=== PATIENT | male | born 1965 | race Two or more races ===

== ENCOUNTER 2025-02-24 12:11 | Inpatient (IN) | payer MEDICAID, OTHER ==
[~2025-02-24] VITALS: Ht 175.3 cm; Wt 125.0 kg
--- NOTE | 2025-02-24 12:29 | ED.PDOC ---
Musculoskeletal HPI Comments 59-year-old male here with right leg swelling times several weeks. noticed some color change it was turning pink and therefore took him to a clinic today. In the clinic they stated ultrasound was done which did demonstrate positive DVT and sent him to the ER. Patient states that when he walks his when the leg bec omes more swollen. He has not had any recent surgery no recent bedrest, no long flights. No history of prior DVT. Denies any shortness of breath. Chief Complaint: Lower Extremity Time Seen by MD: 12:27 Reviewed Notes: Medications, Allergies Allergies: Coded Allergies: NO KNOWN ALLERGIES (Unverified , 02/24/25) Information Source: Patient, Spouse Mode of Arrival: Ambulatory Past Medical History PAST MEDICAL HISTORY: Denies Surgical History: Denies all surgeries Family History Family History: Unknown Social History Smoker: Non-Smoker Alcohol: Denies ETOH Use Drugs: Denies Drug Use Lives In: Home Constitutional: denies: chills, diaphoresis, fatigue, fever, malaise, sweats, weakness, others EENTM: denies: blurred vision, double vision, ear bleeding, ear discharge, ear drainage, ear pain, ear ringing, eye pain, eye redness, hearing loss, mouth pain, mouth swelling, nasal discharge, nose bleeding, nose congestion, nose pain, photophobia, tearing, throat pain, throat swelling, voice changes, others Respiratory: denies: cough, hemoptysis, orthopnea, SOB at rest, shortness of breath, SOB with excertion, stridor, wheezing, others Cardiovascular: denies: chest pain, dizzy spells, diaphoresis, Dyspnea on exertion, edema, irregular heart beat, left arm pain, lightheadedness, palpitations, PND, syncope, others Gastrointestinal: denies: abdomen distended, abdominal pain, blood streaked bowels, constipated, diarrhea, dysphagia, difficulty swallowing, hematemesis, melena, nausea, poor appetite, poor fluid intake, rectal bleeding, rectal pain, vomiting, others Genitourinary: denies: burning, dysuria, flank pain, frequency, hematuria, incontinence, penile discharge, penile sore, pain, testicle pain, testicle swelling, urgency, others Neurological: denies: dizziness, fainting, headache, left sided numbness, left sided weakness, numbness, paresthesia, pre-existing deficit, right sided numbness, right sided weakness, seizure, speech problems, tingling, tremors, weakness, others Musculoskeletal: reports: joint swelling (RLE); denies: back pain, gout, joint pain, muscle pain, muscle stiffness, neck pain, others Integumetry: denies: bruises, change in color, change in hair/nails, dryness, laceration, lesions, lumps, rash, wounds, others Allergic/Immunocompromised: denies: Difficulty Healing, Frequent Infections, Hives, Itching, others Hematologic/Lymphatic: denies: anemia, blood clots, easy bleeding, easy bruising, swollen glands, others Endocrine: denies: excessive hunger, excessive sweating, excessive thirst, excessive urination, flushing, intolerance to cold, intolerance to heat, unexplained weight gain, unexplained weight loss, others Psychiatric: denies: anxiety, bipolar disorder, depression, hopeless, panic disorder, schizophrenia, sleepless, suicidal, others All Other Systems: Reviewed and Negative Physical Exam General Appearance: No Apparent Distress, Normal HEENT: Normal ENT Inspection, Pharynx Normal, TMs Normal Neck: Full Range of Motion, Non-Tender, Normal, Normal Inspection Respiratory: Chest Non-Tender, Lungs Clear, No Accessory Muscle Use, No Respiratory Distress, Normal Breath Sounds Cardiovascular: No Edema, No JVD, No Murmur, No Gallop, Normal Peripheral Pulses, Regular Rate/Rhythm Breast Exam: Deferred Gastrointestinal: No Organomegaly, Non Tender, No Pulsatile Mass, Normal Bowel Sounds, Soft Genitalia: Deferred Pelvic: Deferred Rectal: Deferred Extremities: Swelling, Tender, Other (3+ pitting edema and evidence of erythema to right lower extremity, increased swelling compared to the left.) Musculoskeletal : Apperance: Normal Neurologic: Alert, No Motor Deficits, Normal Affect, Normal Mood, No Sensory Deficits Cerebellar Function: Normal Reflexes: Normal Skin: Dry, Normal Color, Warm Lymphatic: No Adenopathy Was a procedure done? Was a procedure done?: No Differential Diagnosis EXT Differential Diagnosis: Other Other Differential Diagnosis DVT, cellulitis, fluid overload X-Ray, Labs, Meds, VS Vital Signs Date Time Temp Pulse Resp B/P (MAP) Pulse Ox O2 Delivery O2 Flow Rate FiO2 02/24/25 12:16 97.9 83 16 137/74 97 97.9 Lab Test 02/24/25 12:39 Range/Units White Blood Count 6.3 4.4-10.8 10^3/uL Red Blood Count 4.87 4.5-5.90 10^6/uL Hemoglobin 14.0 13.5-17.5 g/dL Hematocrit 41.4 41.0-53.0 % Mean Corpuscular Volume 84.8 80.0-100.0 fL Mean Corpuscular Hemoglobin 28.8 28.0-32.0 pg Mean Corpuscular Hemoglobin Concent 33.9 32.0-36.0 g/dL Red Cell Distribution Width 14.5 H 11.8-14.3 % Platelet Count 235 140-450 10^3/uL Mean Platelet Volume 7.8 6.9-10.8 fL Neutrophils (%) (Auto) 67.6 37.0-80.0 % Lymphocytes (%) (Auto) 22.4 10.0-50.0 % Monocytes (%) (Auto) 7.9 0.0-12.0 % Eosinophils (%) (Auto) 1.8 0.0-7.0 % Basophils (%) (Auto) 0.3 0.0-2.0 % Neutrophils # (Auto) 4.3 1.6-8.6 10 ^3/uL Lymphocytes # (Auto) 1.4 0.4-5.4 10 ^3/uL Monocytes # (Auto) 0.5 0-1.3 10 ^3/uL Eosinophils # (Auto) 0.1 0-0.8 10 ^3/uL Basophils # (Auto) 0 0-0.2 10 ^3/uL Nucleated Red Blood Cells 0.1 % Prothrombin Time 10.9 9.3-11.8 sec Prothrombin Time INR 1.03 0.9-1.15 Activated Partial Thromboplast Time 35.0 H 24.5-34.5 SEC Sodium Level 141 136-145 mmol/L Potassium Level 4.1 3.5-5.1 mmol/L Chloride Level 107 98-107 mmol/L Carbon Dioxide Level 24 20-31 mmol/L Anion Gap 10 5-15 Blood Urea Nitrogen 15 9-23 mg/dL Creatinine 1.26 0.700-1.30 mg/dL Glomerular Filtration Rate Calc 65 >90 mL/min BUN/Creatinine Ratio 11.9 10.0-20.0 Serum Glucose 123 H 74-106 mg/dL Calcium Level 9.3 8.7-10.4 mg/dL [facility] [id number] [place] [address] Ph: [phone] DIAGNOSTIC IMAGING Diagnostic Imaging Report : [id number] Signed PATIENT: GISSELL ROSADO ACCT: [id number] UNIT: [id number] : 1965 LOC: ER ROOM / BED: / AGE / SEX: 59 / M ADM STATUS: REG ER SERVICE 1229 ORDERING PHYSICIAN: ARTURO RUIZ MD PROCEDURE(s): RLDVT - RT Lower DVT REASON: ro dvt ORDER NUMBER(s): [id number], ACCESSION NUMBER(s): [id number] Right lower extremity venous duplex Clinical History: ro dvt Comparison: None Technique: Duplex Doppler evaluation of the deep venous system of the right lower extremity from the common femoral vein to the popliteal vein including color Doppler and spectral/pulsed waveform analysis was performed. Findings: Positive DVT study for the right common femoral, proximal superficial femoral and mid to distal popliteal veins on the right side. Calf veins unable to be visualized secondary to edema. 5.2 cm right groin lymph node. IMPRESSION: 1. Positive DVT study Referring physician notified of results following exam ATED BY: BENNIE MACIEL MD DICTATED DATE/TIME: 02/24/25 1331 SIGNED BY: BENNIE MACIEL MD SIGNED DATE/TIME: 02/24/25 1331 CC: 59-year-old male presents here from clinic for possible DVT. Ultrasound has been done which is positive for DVT to the entire right leg. I have started the patient on heparin drip and bolus in case a procedure needs to be performed thrombectomy and they can easily reverse it. Blood work has been done which is otherwise unremarkable. At this time hospitalist team has been contacted for admission. Time of 1ST Reevaluation: 13:18 Reevaluation 1ST: Unchanged Time of 2ND Reevaluation: 14:47 Reevaluation 2ND: Unchanged Patient Education/Counseling: Diagnosis, Treatment, Prognosis Family Education/Counseling: Diagnosis, Treatment, Prognosis Departure 1 Departure Time of Disposition: 14:47 Impression: Primary Impression: DVT (deep venous thrombosis) Qualified Codes: I82.401 - Acute embolism and thrombosis of unspecified deep veins of right lower extremity Disposition: ADMITTED INPATIENT Condition: Guarded Critical Care Note Critical Care Time?: Yes (35 min-critical care time only) Critical care comment: Immediate concern for DVT. Concern for propagation of his thrombosis and subsequent PE. Patient is started on heparin drip. Time spent evaluating the patient, speaking to ultrasound staff regarding critical results, starting heparin drip, speaking to admitting physician. Stability Stability form required: No Heart Score Heart Score: Heart Score Response (Comments) Value History N/A 0 EKG N/A 0 Age N/A 0 Risk Factors N/A 0 Troponin N/A 0 Total 0 I personally scribed for ARTURO RUIZ MD ([email or web address]) on 02/24/25 at 12:29. Electronically submitted by Jean-Pierre Ferrara ([email or web address]). I personally scribed for ARTURO RUIZ MD ([email or web address]) on 02/24/25 at 12:43. Electronically submitted by Jean-Pierre Ferrara ([email or web address]). I personally scribed for ARTURO RUIZ MD ([email or web address]) on 02/24/25 at 13:18. Electronically submitted by Jean-Pierre Ferrara ([email or web address]). I personally scribed for ARTURO RUIZ MD ([email or web address]) on 02/24/25 at 14:20. Electronically submitted by Jean[facility]Pierre Ferrara ([email or web address] I personally scribed for ARTURO RUIZ MD ([email or web address]) on 02/24/25 at 14:48. Electronically submitted by Jean-Pierre Ferrara ([facility] ARTURO RUIZ MD Feb 24, 2025 12:29
[2025-02-24 13:07] LABS: Hematocrit 41.4 % (41.0-53.0); Hemoglobin 14.0 g/dL (13.5-17.5); Mean Corpuscular Hemoglobin 28.8 pg (28.0-32.0); Mean Corpuscular Volume 84.8 fL (80.0-100.0); Nucleated Red Blood Cells % 0.1 %
[2025-02-24 13:13] LABS: Chloride 107 mmol/L (98-107); Potassium 4.1 mmol/L (3.5-5.1); Sodium 141 mmol/L (136-145)
[2025-02-24 13:14] LABS: Anion Gap 10 (5-15); Calcium 9.3 mg/dL (8.7-10.4); Carbon Dioxide 24 mmol/L (20-31)
[2025-02-24 13:19] LABS: BUN/Creatinine Ratio 11.9 (10.0-20.0); Blood Urea Nitrogen 15 mg/dL (9-23)
[2025-02-24 13:20] LABS: Glucose 123 mg/dL (74-106)
[2025-02-24 13:28] LABS: INR 1.04 (0.9-1.15); Prothrombin Time 11.0 sec (9.3-11.8)
--- NOTE | 2025-02-24 13:34 | DVH ---
Right lower extremity venous duplex Clinical History: ro dvt Comparison: None Technique: Duplex Doppler evaluation of the deep venous system of the right lower extremity from the common femo ral vein to the popliteal vein including color Doppler and spectral/pulsed waveform analysis was perf ormed. Findings: Positive DVT study for the right common femoral, proximal superficial femoral and mid to distal popli teal veins on the right side. Calf veins unable to be visualized secondary to edema. 5.2 cm right matheus in lymph node. IMPRESSION: 1. Positive DVT study Referring physician notified of results following exam
[2025-02-24 14:44] LABS: INR 1.03 (0.9-1.15); Partial Thromboplastin Time 35.0 SEC (24.5-34.5); Prothrombin Time 10.9 sec (9.3-11.8)
--- NOTE | 2025-02-24 14:50 | DVHHP2 ---
Admitting Diagnosis: right leg pain History of Present Illness 59-year-old male here with right leg swelling times several weeks. noticed some color change it was turning pink and therefore took him to a clinic today. In the clinic they stated ultrasound was done which did demonstrate positive DVT and sent him to the ER. Patient states that when he walks his when the leg becomes more swollen. He has not had any recent surgery no recent bedrest, no long flights. No history of prior DVT. Denies any shortness of breath. PAST MEDICAL HISTORY: Denies Surgical History: Denies all surgeries Family History Family History: Unknown Social History Smoker: Non-Smoker Alcohol: Denies ETOH Use Drugs: Denies Drug Use Lives In: Home Allergies: Coded Allergies: NO KNOWN ALLERGIES (Unverified , 02/24/25) Current Medications Current Medications Medications (Trade) Dose Ordered Sig/[place] Route PRN Reason Start Time Stop Time Status Last Admin Heparin Sodium/ Dextrose 250 ml @ 20 mls/hr [id number] IV 02/24/25 13:30 Sodium Chloride (Saline Lock Ns) 10 ml Q8HR IV 02/24/25 22:00 UNV Vital Signs Vital Signs Date Time Temp Pulse Resp B/P (MAP) Pulse Ox O2 Delivery O2 Flow Rate FiO2 02/24/25 12:16 97.9 83 16 137/74 97 97.9 Physical Exam Generally-59 years old male, morbidly obese, sitting on chair. Mild distress HEENT-atraumatic normocephalic Heart-regular rate and rhythm Lungs clear to auscultate Abdomen soft nontender nondistended Musculoskeletal-right lower extremity edema, erythematous, tender Neuro-AO x3, no focal deficits SEPSIS Sepsis Screen Date sepsis recognized/suspect: Feb 24, 2025 Time Sepsis recognized/suspect: 9 Recent Procedure: No On Antibiotic Therapy: No Respiratory Rate >20: No Heart Rate >90: No Temp<36 C (96.8 F) or >38.3 C: No SBP <90 or MAP <65 mmHG: No New Acute Mental Status Change: No Is the patient on CPAP, BIPAP,: No Physician Orders Rt Lower Dvt (02/24/25 12:29) Platelet Monitoring (02/24/25 13:43) Vte Protocol Initiated (02/24/25 13:43) Heparin Per Standardized Proce (02/24/25 13:43) Discontinue All Im Injections (02/24/25 13:43) PTPTT (02/24/25 13:43) Complete Blood Count (02/24/25 13:43) Heparin Drip/D5w 100units/Ml (02/24/25 13:30) Admit (02/24/25:) Code Status (02/24/25:) Vital Signs .PER UNIT PROTOCOL (02/24/25:) Review Orders With Adm.Md (02/24/25:) Encourage Activity As Tolerate (02/24/25:) Regular Diet (02/24/25 Dinner) Sodium Chloride Lock (Saline Lock Ns) (02/24/25 22:00) Acetaminophen Tablet (Tylenol Tablet) (02/24/25:30) Notify Md Of Changes From Base (02/24/25:) Advance Directive (02/24/25:) Patient Condition (02/24/25:) Allergies (02/24/25:) Hydrocodone-Acet 5/325mg Tab ([place] 5/32 (02/24/25 15:30) Hydromorphone Injection (Dilaudid Inject (02/24/25 15:30) Ondansetron Hcl (Zofran) (02/24/25 15:30) Complete Blood Count (02/25/25 05:00) Complete Blood Count (02/26/25 05:00) Complete Blood Count (02/27/25 05:00) Complete Blood Count (02/28/25 05:00) Complete Blood Count (03/01/25 05:00) Comprehensive Metabolic Panel (02/25/25 05:00) Comprehensive Metabolic Panel (02/26/25 05:00) Comprehensive Metabolic Panel (02/27/25 05:00) Comprehensive Metabolic Panel (02/28/25 05:00) Comprehensive Metabolic Panel (03/01/25 05:00) Vital Signs Date Time Temp Pulse Resp B/P (MAP) Pulse Ox O2 Delivery O2 Flow Rate FiO2 02/24/25 12:16 97.9 83 16 137/74 97 97.9 Laboratory Tests Test 02/24/25 12:39 White Blood Count 6.3 10^3/uL (4.4-10.8) Results Labs Test 02/24/25 12:39 Range/Units White Blood Count 6.3 4.4-10.8 10^3/uL Red Blood Count 4.87 4.5-5.90 10^6/uL Hemoglobin 14.0 13.5-17.5 g/dL Hematocrit 41.4 41.0-53.0 % Mean Corpuscular Volume 84.8 80.0-100.0 fL Mean Corpuscular Hemoglobin 28.8 28.0-32.0 pg Mean Corpuscular Hemoglobin Concent 33.9 32.0-36.0 g/dL Red Cell Distribution Width 14.5 H 11.8-14.3 % Platelet Count 235 140-450 10^3/uL Mean Platelet Volume 7.8 6.9-10.8 fL Neutrophils (%) (Auto) 67.6 37.0-80.0 % Lymphocytes (%) (Auto) 22.4 10.0-50.0 % Monocytes (%) (Auto) 7.9 0.0-12.0 % Eosinophils (%) (Auto) 1.8 0.0-7.0 % Basophils (%) (Auto) 0.3 0.0-2.0 % Neutrophils # (Auto) 4.3 1.6-8.6 10 ^3/uL Lymphocytes # (Auto) 1.4 0.4-5.4 10 ^3/uL Monocytes # (Auto) 0.5 0-1.3 10 ^3/uL Eosinophils # (Auto) 0.1 0-0.8 10 ^3/uL Basophils # (Auto) 0 0-0.2 10 ^3/uL Nucleated Red Blood Cells 0.1 % Prothrombin Time 10.9 9.3-11.8 sec Prothrombin Time INR 1.03 0.9-1.15 Activated Partial Thromboplast Time 35.0 H 24.5-34.5 SEC Sodium Level 141 136-145 mmol/L Potassium Level 4.1 3.5-5.1 mmol/L Chloride Level 107 98-107 mmol/L Carbon Dioxide Level 24 20-31 mmol/L Anion Gap 10 5-15 Blood Urea Nitrogen 15 9-23 mg/dL Creatinine 1.26 0.700-1.30 mg/dL Glomerular Filtration Rate Calc 65 >90 mL/min BUN/Creatinine Ratio 11.9 10.0-20.0 Serum Glucose 123 H 74-106 mg/dL Calcium Level 9.3 8.7-10.4 mg/dL Primary Diagnosis Right lower extremity DVT Plan Ultrasound shows positive lower extremity DVT Patient started on heparin drip Monitor erythema and pain Monitor for oxygen saturation Discharged with oral anticoagulation Full code Regular diet Heparin for DVT prophylaxis No GI prophylaxis needed Plan discussed with: Patient Problems List: (1) DVT (deep venous thrombosis) Status: Acute Date of Service: Feb 24, 2025 Billing Provider: CHIARA WHITE MD Common Visit Codes: [id number] INP/OBS CARE (MOD) CHIARA WHITE MD Feb 24, 2025 14:50
[2025-02-24] MEDS ORDERED: ACETAMINOPHEN 325 MG TAB PO PRN (15:30)
[2025-02-24] MEDS ORDERED: HYDROcodone-ACET 5/325MG TAB PO PRN (15:30)
[2025-02-24] MEDS ORDERED: ONDANSETRON HCL 4 MG/2 ML VIAL IV PRN (15:30)
[2025-02-24] MEDS ORDERED: HYDROmorphone HCL 2 MG/ML VL/or syr IV PRN (15:30)
[2025-02-24 18:10] VITALS: PULSE 65; RESP 18; O2SAT 97
[2025-02-24] MEDS: HEPARIN SODIUM (PORCINE) 5000 UNITS/ML 1ML VIAL IV ONE (18:24)
[2025-02-24] MEDS: HEPARIN DRIP/D5W 100UNITS/ML 250 ML IV SCH (18:26)
[2025-02-24 19:55] VITALS: PULSE 88; RESP 20; O2SAT 97
[2025-02-24] MEDS: SODIUM CHLOR 0.9% PF (SALINE LOCK) 10ML VIAL/SYR IV SCH (20:50)
[2025-02-25 01:03] LABS: INR 1.05 (0.9-1.15); Prothrombin Time 11.1 sec (9.3-11.8)
[2025-02-25 01:06] LABS: Partial Thromboplastin Time 87.9 SEC (24.5-34.5)
[2025-02-25] MEDS: HEPARIN DRIP/D5W 100UNITS/ML 250 ML IV SCH ×3 (01:14→17:15)
[2025-02-25 05:46] LABS: Hematocrit 38.6 % (41.0-53.0); Hemoglobin 13.1 g/dL (13.5-17.5); Mean Corpuscular Hemoglobin 28.7 pg (28.0-32.0); Mean Corpuscular Volume 84.5 fL (80.0-100.0); Nucleated Red Blood Cells % 0.1 %
[2025-02-25 06:05] LABS: Alanine Aminotransferase 20 U/L (7-40); Alkaline Phosphatase 63 U/L (46-116); Anion Gap 10 (5-15); BUN/Creatinine Ratio 13.8 (10.0-20.0); Blood Urea Nitrogen 16 mg/dL (9-23); Calcium 9.3 mg/dL (8.7-10.4); Carbon Dioxide 25 mmol/L (20-31); Chloride 106 mmol/L (98-107); Glucose 104 mg/dL (74-106); Potassium 4.5 mmol/L (3.5-5.1); Sodium 141 mmol/L (136-145); Total Protein 6.7 g/dL (5.7-8.2)
[2025-02-25 06:06] LABS: Albumin 4.2 g/dL (3.2-4.8); Bilirubin, Total 0.5 mg/dL (0.2-1.0)
[2025-02-25 08:06] VITALS: PULSE 61; RESP 15; O2SAT 97
[2025-02-25 08:51] LABS: INR 1.07 (0.9-1.15); Prothrombin Time 11.3 sec (9.3-11.8)
[2025-02-25 09:14] LABS: Partial Thromboplastin Time 134.1 SEC (24.5-34.5)
--- NOTE | 2025-02-25 09:37 | CONS ---
Pharmacy Clinical Information: HEPARIN PER DVT PROTOCOL: APTT result of 134.1 received from 0734 draw. Please hold heparin for 1 hour, then adjust rate to 1600 units per hour (16mL/hr). Nurse Phi bennett drip @ 0915, will resume at 1015 with new rate. APTT/PT ordered for 1600 per PRx protocol. AGUILA BURCH PHARMACIST Feb 25, 2025 09:37
[2025-02-25] MEDS ORDERED: HEPARIN DRIP/D5W 100UNITS/ML 250 ML IV SCH (10:15)
[2025-02-25] MEDS: IOHEXOL 350 MG/ML 100ML IJ ONE (14:11)
[2025-02-25] MEDS: SODIUM CHLORIDE 0.9% 1,000 ML IV SCH (14:47)
--- NOTE | 2025-02-25 15:17 | DVH ---
CTA Chest with intravenous contrast INDICATION: dvt r/o PE COMPARISON: None TECHNIQUE: Multidetector spiral CTA of the chest was performed of the chest with intravenous contrast . PULMONARY ANGIOGRAPHY PROTOCOL was utilized using a bolus-tracking technique centered on the main p ulmonary artery. Axial, coronal and sagittal multiplanar and MIP reformats were performed. Radiation Dose : 1. Chest: CTDI volume is 44.4 mGy. Dose-length product is 2.54 mGy*cm The dose indicators for CT are the volume Computed Tomography (CT) Dose Index (CTDIvol) and the Dose Length Product (DLP), and are measured in units of mGy and mGy-cm, respectively. These indicators are not patient dose, but values generated from the CT scanner acquisition factors. The report includes radiation exposure data for exposures received during this examination. Findings: Pulmonary artery: No pulmonary embolism Lower neck: Normal thyroid. Lungs: Bibasilar atelectasis/ scarring. No focal consolidation, pleural effusion or pneumothorax. Heart/Vascular Structures: Normal heart size. No pericardial effusion. Lymph Nodes: No adenopathy Pleura: No pleural effusion or significant pneumothorax. Musculoskeletal: No acute osseous abnormality. Soft tissues: Normal. Upper abdomen: Limited portions of the upper abdomen are unremarkable. IMPRESSION: 1. No pulmonary embolism. 2. No acute thoracic finding.
[2025-02-25 16:58] LABS: INR 1.04 (0.9-1.15); Prothrombin Time 11.0 sec (9.3-11.8)
[2025-02-25 17:14] LABS: Partial Thromboplastin Time 77.7 SEC (24.5-34.5)
--- NOTE | 2025-02-25 17:27 | CONS ---
Pharmacy Clinical Information: HEPARIN UPDATE PER PROTOCOL: APTT result of 77.7 received from 1620 draw. Please reduce heparin to 1300 units per hour (13mL/hr) starting at 1715. Nurse Bety adjusted rate at 1715, confirmed and read back. APTT/PT ordered for 2315 per PRx protocol. AGUILA BURCH PHARMACIST Feb 25, 2025 17:27
--- NOTE | 2025-02-25 17:45 | DVHPN2 ---
Changes from previous H/P or p: No Changes Objective Vitals Vital Signs Date Time Temp Pulse Resp B/P (MAP) Pulse Ox O2 Delivery O2 Flow Rate FiO2 02/25/25 16:00 63 16 117/78 (91) 96 02/25/25 08:06 Room Air* 0 21 02/25/25 05:57 98.1 98.1 Medications Current Medications Medications Dose Ordered Sig/[place] Route Start Time Stop Time Status Last Admin Dose Admin Sodium Chloride 10 ml Q8HR IV 02/24/25 22:00 02/25/25 14:07 10 ML Acetaminophen 650 mg Q6HP PRN PO 02/24/25 15:30 Acetaminophen/ Hydrocodone Bitart 1 tab Q4HP PRN PO 02/24/25 15:30 Hydromorphone HCl 0.5 mg Q4HP PRN IV 02/24/25 15:30 Ondansetron HCl 4 mg Q4HP PRN IV 02/24/25 15:30 Sodium Chloride 1,000 ml @ 100 mls/hr Q10H IV 02/25/25 13:00 02/25/25 14:47 100 MLS/HR Heparin Sodium/ Dextrose 250 ml @ 13 mls/hr [id number] IV 02/25/25 17:30 Laboratory Results Laboratory Tests 02/25/25 05:33 Chemistry Test 02/25/25 05:33 Albumin 4.2 g/dL (3.2-4.8) Calcium Level 9.3 mg/dL (8.7-10.4) Total Protein 6.7 g/dL (5.7-8.2) Coagulation Test 02/25/25 00:30 02/25/25 07:34 02/25/25 16:20 Prothrombin Time 11.1 sec (9.3-11.8) 11.3 sec (9.3-11.8) 11.0 sec (9.3-11.8) Prothrombin Time INR 1.05 (0.9-1.15) 1.07 (0.9-1.15) 1.04 (0.9-1.15) Activated Partial Thromboplast Time 87.9 SEC (24.5-34.5) *H 134.1 SEC (24.5-34.5) *H 77.7 SEC (24.5-34.5) *H LFT Test 02/25/25 05:33 Alanine Aminotransferase (ALT) 20 U/L (7-40) Alkaline Phosphatase 63 U/L (46-116) Aspartate Amino Transferase (AST) 23 U/L (13-40) Total Bilirubin 0.5 mg/dL (0.2-1.0) Assessment/Plan Assessment/Plan Right lower extremity DVT unclear etiology We will have Interventional Radiology for consider thrombectomy. Continue IV heparin for now. I will check PSA levels and hypercoagulable tests. Otherwise follow clinical management per clinical course Plan discussed with: Other My Orders Orders - BARBY SALAMANCA MD Procedure Category Date Status Time * Radiologist Consult CONS 02/25/25 Transmitted 12:[address] 02/25/25 Resulted Contrast 12:59 Sodium Chloride 0.9% PHA 02/25/25 In Process 13:00 Date of Service: Feb 25, 2025 Billing Provider: BARBY SALAMANCA MD Common Visit Codes: [id number] INP/OBS CARE(MOD) BARBY SALAMANCA MD Feb 25, 2025 17:45
[2025-02-25 19:25] VITALS: PULSE 60; RESP 20; O2SAT 95
[2025-02-25 23:31] VITALS: BP 141/88; PULSE 55; RESP 18; TEMP 97.6; O2SAT 99
[2025-02-25 23:48] LABS: INR 1.05 (0.9-1.15); Partial Thromboplastin Time 62.4 SEC (24.5-34.5); Prothrombin Time 11.1 sec (9.3-11.8)
[2025-02-26] VITALS (9 sets, daily range): BP systolic 117–147; BP diastolic 68–96; PULSE 53–75; RESP 12–20; TEMP 97.6–98.6; O2SAT 94–99
[2025-02-26 07:36] LABS: Hematocrit 41.7 % (41.0-53.0); Hemoglobin 14.5 g/dL (13.5-17.5); Mean Corpuscular Hemoglobin 29.3 pg (28.0-32.0); Mean Corpuscular Volume 84.1 fL (80.0-100.0); Nucleated Red Blood Cells % 0.1 %
[2025-02-26 07:55] LABS: Alanine Aminotransferase 21 U/L (7-40); Albumin 4.4 g/dL (3.2-4.8); Alkaline Phosphatase 66 U/L (46-116); Anion Gap 11 (5-15); BUN/Creatinine Ratio 11.7 (10.0-20.0); Blood Urea Nitrogen 14 mg/dL (9-23); Calcium 9.3 mg/dL (8.7-10.4); Carbon Dioxide 25 mmol/L (20-31); Chloride 104 mmol/L (98-107); Glucose 163 mg/dL (74-106); Potassium 3.9 mmol/L (3.5-5.1); Sodium 140 mmol/L (136-145); Total Protein 7.1 g/dL (5.7-8.2)
[2025-02-26 07:56] LABS: Bilirubin, Total 0.6 mg/dL (0.2-1.0)
[2025-02-26 08:06] LABS: INR 1.22 (0.9-1.15); Prothrombin Time 12.7 sec (9.3-11.8)
--- NOTE | 2025-02-26 09:58 | CONS ---
Pharmacy Clinical Information: HEPARIN DRIP, DVT PROTOCOL @0858 APTT 61.4 - NO BOLUS / NO CHANGE NEXT APTT DRAW SCHEDULED @1500 PER RX PROTOCOL CONFIRMED AND READ BACK WITH RN LILY TY PHARMACIST Feb 26, 2025 09:58
[2025-02-26 11:18] LABS: Hepatitis B Surface Antigen Negative (Negative); Hepatitis C Antibody Negative (Negative)
[2025-02-26] MEDS: HEPARIN SODIUM (PORCINE) 5000 UNITS/ML 1ML VIAL ONE (15:35)
[2025-02-26] MEDS: fentaNYL CITRATE 100 MCG/2 ML VL ONE (15:36)
[2025-02-26] MEDS: IODIXANOL 320MG/ML 100ML BTL IV ONE (15:36)
[2025-02-26] MEDS: MIDAZOLAM HCL 2MG/2ML 2ml VIAL (1mg/ml) ONE (15:36)
[2025-02-26] MEDS: LIDOCAINE 2%HCL (LOCAL ANESTH.) INJ 20ML MDV ONE (15:36)
[2025-02-26 18:27] LABS: INR 1.07 (0.9-1.15); Partial Thromboplastin Time 36.6 SEC (24.5-34.5); Prothrombin Time 11.3 sec (9.3-11.8)
[2025-02-26] MEDS: HEPARIN DRIP/D5W 100UNITS/ML 250 ML IV SCH (18:48)
--- NOTE | 2025-02-26 22:38 | DVHPN2 ---
Subjective In bed comfortable. No complaints or shortness for breath chest pain or legs discomfort. Pending evaluation for thrombectomy of the blood clot in the leg. Changes from previous H/P or p: No Changes Objective Vitals Vital Signs Date Time Temp Pulse Resp B/P (MAP) Pulse Ox O2 Delivery O2 Flow Rate FiO2 02/26/25 21:00 97.8 57 16 131/77 (95) 97 97.8 02/26/25 08:20 Room Air* 0 21 Intake/Output Intake and Output 02/26/25 07:00 Intake Total 1053 ml Output Total 550 ml Balance 503 ml Intake Oral 0 ml IV Total 1053 ml Output Urine Total 550 ml Exam Alert awake oriented x3. HEENT neck supple no JVD. Heart regular rate and rhythm S1-S2. Lungs fair air movement without wheezing. Abdomen obese soft positive bowel sounds. Extremities positive distal pedal pulses. Medications Current Medications Medications Dose Ordered Sig/[place] Route Start Time Stop Time Status Last Admin Dose Admin Sodium Chloride 10 ml Q8HR IV 02/24/25 22:00 02/26/25 22:22 10 ML Acetaminophen 650 mg Q6HP PRN PO 02/24/25 15:30 Acetaminophen/ Hydrocodone Bitart 1 tab Q4HP PRN PO 02/24/25 15:30 Hydromorphone HCl 0.5 mg Q4HP PRN IV 02/24/25 15:30 Ondansetron HCl 4 mg Q4HP PRN IV 02/24/25 15:30 Sodium Chloride 1,000 ml @ 100 mls/hr Q10H IV 02/25/25 13:00 02/26/25 18:48 100 MLS/HR Heparin Sodium/ Dextrose 250 ml @ 13 mls/hr [id number] IV 02/26/25 17:30 02/26/25 18:48 13 MLS/HR Laboratory Results Laboratory Tests 02/26/25 07:08 Chemistry Test 02/26/25 07:08 Albumin 4.4 g/dL (3.2-4.8) Calcium Level 9.3 mg/dL (8.7-10.4) Total Protein 7.1 g/dL (5.7-8.2) Coagulation Test 02/25/25 23:21 02/26/25 07:08 02/26/25 08:58 02/26/25 17:57 Prothrombin Time 11.1 sec (9.3-11.8) 12.7 sec (9.3-11.8) H 11.3 sec (9.3-11.8) Prothrombin Time INR 1.05 (0.9-1.15) 1.22 (0.9-1.15) H 1.07 (0.9-1.15) Activated Partial Thromboplast Time 62.4 SEC (24.5-34.5) H 61.4 SEC (24.5-34.5) H 36.6 SEC (24.5-34.5) H Anti-Thrombin III Antigen Pending Factor V Leiden Mutation Pending LFT Test 02/26/25 07:08 Alanine Aminotransferase (ALT) 21 U/L (7-40) Alkaline Phosphatase 66 U/L (46-116) Aspartate Amino Transferase (AST) 21 U/L (13-40) Total Bilirubin 0.6 mg/dL (0.2-1.0) Assessment/Plan Assessment/Plan Right lower extremity DVT unclear etiology We will have Interventional Radiology for consider thrombectomy. Continue IV heparin for now. Pending thrombectomy evaluation today. Further clinical management per clinical course. Plan discussed with: Patient, Other Date of Service: Feb 26, 2025 Billing Provider: BARBY SALAMANCA MD Common Visit Codes: [id number] INP/OBS CARE(MOD) BARBY SALAMANCA MD Feb 26, 2025 22:37
[2025-02-27] MEDS: HEPARIN DRIP/D5W 100UNITS/ML 250 ML IV SCH (00:53)
[2025-02-27 01:00] VITALS: BP 145/89; PULSE 60; RESP 18; TEMP 98; O2SAT 98
[2025-02-27 05:00] VITALS: BP 137/92; PULSE 64; RESP 16; TEMP 97.7; O2SAT 98
[2025-02-27 08:07] LABS: Prostate Specific Antigen 2.4 ng/mL (0.0-4.0)
[2025-02-27 08:12] VITALS: RESP 18
[2025-02-27 08:21] LABS: Hematocrit 39.8 % (41.0-53.0); Hemoglobin 13.8 g/dL (13.5-17.5); Mean Corpuscular Hemoglobin 29.0 pg (28.0-32.0); Mean Corpuscular Volume 83.7 fL (80.0-100.0); Nucleated Red Blood Cells % 0.0 %
[2025-02-27 08:48] LABS: Alanine Aminotransferase 21 U/L (7-40); Albumin 4.3 g/dL (3.2-4.8); Alkaline Phosphatase 64 U/L (46-116); Anion Gap 10 (5-15); BUN/Creatinine Ratio 12.1 (10.0-20.0); Blood Urea Nitrogen 13 mg/dL (9-23); Calcium 9.3 mg/dL (8.7-10.4); Carbon Dioxide 24 mmol/L (20-31); Chloride 107 mmol/L (98-107); Glucose 93 mg/dL (74-106); Potassium 4.0 mmol/L (3.5-5.1); Sodium 141 mmol/L (136-145); Total Protein 7.0 g/dL (5.7-8.2)
[2025-02-27 08:49] LABS: Bilirubin, Total 0.6 mg/dL (0.2-1.0)
[2025-02-27 08:56] LABS: INR 1.08 (0.9-1.15); Partial Thromboplastin Time 64.0 SEC (24.5-34.5); Prothrombin Time 11.4 sec (9.3-11.8)
[2025-02-27 09:00] VITALS: BP 139/89; PULSE 67; RESP 20; TEMP 98; O2SAT 97
--- NOTE | 2025-02-27 09:42 | CONS ---
Pharmacy Clinical Information: HEPARIN DRIP, DVT PROTOCOL @0728 APTT 64.0 - NO BOLUS / NO CHANGE NEXT APTT DRAW SCHEDULED @1400 PER RX PROTOCOL CONFIRMED AND READ BACK WITH HERSON ABURTO [facility] RESIDENT Feb 27, 2025 09:42
[2025-02-27] MEDS ORDERED: APIX5TAB4 PO (12:08)
[2025-02-27 13:00] VITALS: BP 121/85; PULSE 65; RESP 18; TEMP 98.9; O2SAT 97
[2025-02-27] MEDS: APIXABAN 5 MG TAB PO SCH (13:23)
--- NOTE | 2025-02-27 15:15 | DVHDS2 ---
Discharge Summary Date of Admission Feb 24, 2025 at 15:25 Date of Discharge: Feb 27, 2025 Labs/Diagnostic Data: Laboratory Results Test 02/27/25 07:28 02/26/25 07:08 White Blood Count 4.7 10^3/uL (4.4-10.8) Red Blood Count 4.76 10^6/uL (4.5-5.90) Hemoglobin 13.8 g/dL (13.5-17.5) Hematocrit 39.8 % (41.0-53.0) Mean Corpuscular Volume 83.7 fL (80.0-100.0) Mean Corpuscular Hemoglobin 29.0 pg (28.0-32.0) Mean Corpuscular Hemoglobin Concent 34.7 g/dL (32.0-36.0) Red Cell Distribution Width 14.4 % (11.8-14.3) Platelet Count 202 10^3/uL (140-450) Mean Platelet Volume 7.9 fL (6.9-10.8) Neutrophils (%) (Auto) 62.2 % (37.0-80.0) Lymphocytes (%) (Auto) 26.4 % (10.0-50.0) Monocytes (%) (Auto) 8.9 % (0.0-12.0) Eosinophils (%) (Auto) 2.0 % (0.0-7.0) Basophils (%) (Auto) 0.5 % (0.0-2.0) Neutrophils # (Auto) 2.9 10 ^3/uL (1.6-8.6) Lymphocytes # (Auto) 1.2 10 ^3/uL (0.4-5.4) Monocytes # (Auto) 0.4 10 ^3/uL (0-1.3) Eosinophils # (Auto) 0.1 10 ^3/uL (0-0.8) Basophils # (Auto) 0 10 ^3/uL (0-0.2) Nucleated Red Blood Cells 0.0 % Prothrombin Time 11.4 sec (9.3-11.8) Prothrombin Time INR 1.08 (0.9-1.15) Activated Partial Thromboplast Time 64.0 SEC (24.5-34.5) Sodium Level 141 mmol/L (136-145) Potassium Level 4.0 mmol/L (3.5-5.1) Chloride Level 107 mmol/L (98-107) Carbon Dioxide Level 24 mmol/L (20-31) Anion Gap 10 (5-15) Blood Urea Nitrogen 13 mg/dL (9-23) Creatinine 1.07 mg/dL (0.700-1.30) Glomerular Filtration Rate Calc 79 mL/min (>90) BUN/Creatinine Ratio 12.1 (10.0-20.0) Serum Glucose 93 mg/dL (74-106) Calcium Level 9.3 mg/dL (8.7-10.4) Total Bilirubin 0.6 mg/dL (0.2-1.0) Aspartate Amino Transferase (AST) 25 U/L (13-40) Alanine Aminotransferase (ALT) 21 U/L (7-40) Alkaline Phosphatase 64 U/L (46-116) Total Protein 7.0 g/dL (5.7-8.2) Albumin 4.3 g/dL (3.2-4.8) Free Prostate Specific Antigen 0.47 ng/mL (N/A) Percent Free Prostate Specific Ag 19.6 % (.) Prostate Specific Antigen Total 2.4 ng/mL (0.0-4.0) Hepatitis B Surface Antigen Negative (Negative) Hepatitis C Antibody Negative (Negative) Other Laboratory Tests 02/27/25 07:28 Brief Hx & Hospital Course: 59-year-old male here with right leg swelling times several weeks. noticed some color change it was turning pink and therefore took him to a clinic today. In the clinic they stated ultrasound was done which did demonstrate positive DVT and sent him to the ER. Patient states that when he walks his when the leg becomes more swollen. He has not had any recent surgery no recent bedrest, no long flights. No history of prior DVT. Denies any shortness of breath. He is admitted and noted to have a DVT in the leg. It appeared to be chronic DVT. Patient had attempt for thrombectomy and apparently was unsuccessful due to chronic nature of the DVT. Patient is started on IV heparin and transitioned to oral Eliquis. His symptoms have improved. Patient had a CT angiogram negative for PE. Patient's PSA levels were normal. His antithrombin three antigen came back normal. Factor five Leiden result is pending. It is unclear for his DVT however possibly secondary to his underlying morbid obesity. Therefore patient is counseled and educated regarding his obesity and advised to do diet exercise and weight loss. Otherwise given patient is clinically stable not having any other issues it is felt he could be safely discharged home with continuation oral Eliquis. I have talked with the patient regarding his hospital diagnosis of treatment he received, discharge medications including side effects of bleeding with the Eliquis in the benefits as well as discharge instructions and follow-up plan of care. He has verbalized understanding of these and agree with the care plan as outlined Operations or Procedures PROCEDURE(s): RLDVT - RT Lower DVT REASON: ro dvt ORDER NUMBER(s): [id number], ACCESSION NUMBER(s): [id number] Right lower extremity venous duplex Clinical History: ro dvt Comparison: None Technique: Duplex Doppler evaluation of the deep venous system of the right lower extremity from the common femoral vein to the popliteal vein including color Doppler and spectral/pulsed waveform analysis was performed. Findings: Positive DVT study for the right common femoral, proximal superficial femoral and mid to distal popliteal veins on the right side. Calf veins unable to be visualized secondary to edema. 5.2 cm right groin lymph node. IMPRESSION: 1. Positive DVT study Referring physician notified of results following exam EDURE(s): CTACH - CT ANGIO CHEST CONTRAST REASON: dvt r/o PE ORDER NUMBER(s): [id number], ACCESSION NUMBER(s): [id number] CTA Chest with intravenous contrast INDICATION: dvt r/o PE COMPARISON: None TECHNIQUE: Multidetector spiral CTA of the chest was performed of the chest with intravenous contrast. PULMONARY ANGIOGRAPHY PROTOCOL was utilized using a bolus- tracking technique centered on the main pulmonary artery. Axial, coronal and sagittal multiplanar and MIP reformats were performed. Radiation Dose : 1. Chest: CTDI volume is 44.4 mGy. Dose-length product is 2.54 mGy*cm The dose indicators for CT are the volume Computed Tomography (CT) Dose Index (CTDIvol) and the Dose Length Product (DLP), and are measured in units of mGy and mGy-cm, respectively. These indicators are not patient dose, but values generated from the CT scanner acquisition factors. The report includes radiation exposure data for exposures received during this examination. Findings: Pulmonary artery: No pulmonary embolism Lower neck: Normal thyroid. Lungs: Bibasilar atelectasis/ scarring. No focal consolidation, pleural effusion or pneumothorax. Heart/Vascular Structures: Normal heart size. No pericardial effusion. Lymph Nodes: No adenopathy Pleura: No pleural effusion or significant pneumothorax. Musculoskeletal: No acute osseous abnormality. Soft tissues: Normal. Upper abdomen: Limited portions of the upper abdomen are unremarkable. IMPRESSION: 1. No pulmonary embolism. 2. No acute thoracic finding. Condition at Discharge: Stable Final Diagnosis/Problems List Right lower extremity DVT unclear etiology status post thrombectomy Discharge Disposition: Home Discharge Instruct/Medications Diet: Consistent carbohydrate, Cardiac 2g Na,low cholest Activity: No Restrictions, As Tolerated Follow Up/Referral: Primary care physician in 2 weeks for further workup and evaluation of leg blood clot. Medications: Continue the blood thinner as prescribed for at least 6-9 months. Scheduled Apixaban Base (Eliquis Starter Pack), 5 MG PO BID Discharge Statement: "Patient was advised to return to the ER or call 911 if any headaches, dizziness, shortness of breath, chest pain, abdominal pain, bleeding, fevers, or worsening of medical condition. Patient was counseled about treatment plan, medications, possible side effects, patientverbalized understanding. All questions were answered to the best of my ability. This discharge took greater then 30 minutes in planning, reviewing documentation, counseling the patient, and discussing with other team members." ASSESSMENT ASSESSMENT Assessment Right lower extremity DVT unclear etiology status post thrombectomy Date of Service: Feb 27, 2025 Billing Provider: BARBY SALAMANCA MD Common Visit Codes: 81597-EAW/OBS DISCH DAY <30MIN BARBY SALAMANCA MD Feb 27, 2025 15:15
--- NOTE | 2025-02-27 15:28 | DVH ---
PROCEDURE: Diagnostic venography and interventions Procedural Personnel Attending physician(s): BARBY SALAMANCA Fellow physician(s): None Resident physician(s): None Advanced practice provider(s): None Procedure Date (mm/dd/yyyy): 02/26/2025 Pre-procedure diagnosis: DVT Post-procedure diagnosis: Same Indication: 28 days)"},{"Type":"Default Value","Name":"Deep venous","Value":"Deep venous thrombosis o f uncertain age"},{"Type":"Default Value","Name":"Venous compression","Value":"Venous compression wit hout venous thrombosis"},{"Type":"Default Value","Name":"Superior Vena","Value":"Superior Vena Cava s yndrome"},{"Type":"Default Value","Name":"Thoracic Outlet","Value":"Thoracic Outlet syndrome"},{"Type ":"Default Value","Name":"May-Thurner syndrome","Value":"May-Thurner syndrome"},{"Type":"Default Valu e","Name":"Other-","Value":"Other-"}],"Name":"Indication"}" macro-type="picklist" macro="Pick list In dication" [id number]" ignore-node="true" style="color:#[id number];">[Indication:Acute deep/Subacute d eep/Chronic deep/Deep venous/Venous compression/Superior Vena/Thoracic Outlet/May-Thurner syndrome/Ot her-] Additional clinical history: None Complications: No immediate complications. IMPRESSION: 1. Diagnostic venography demonstrates chronically occluded popliteal vein 2. Plan: 3. Procedure not performed 4. PROCEDURE SUMMARY: 5. - Venous access with ultrasound guidance 6. - Selective venography as described below 7. - Additional procedure(s): None 8. PROCEDURE DETAILS: 9. Pre-procedure 10. Consent: Informed consent for the procedure including risks, benefits and alternatives was obtain ed and time-out was performed prior to the procedure. 11. Preparation: The site was prepared and draped using maximal sterile barrier technique including c utaneous antisepsis. 12. Anesthesia/sedation Level of anesthesia/sedation: Moderate sedation (conscious sedation) Anesthesia/sedation administered by: Independent trained observer under attending supervision with c ontinuous monitoring of the patient s level of consciousness and physiologic status Total intra-service sedation time (minutes): 1 hour 13. Access Despite multiple attempts including access to the popliteal vein I was never able to maneuver my caleb dewire past the popliteal vein due to chronic thrombosis. Laterality: Right Vein accessed: Popliteal vein Access technique: Micropuncture needle and wire 14. Venography The popliteal vein was accessed, despite multiple attempts I was never able to advance the guidewire past the popliteal vein. 15. Vein catheterized: Popliteal vein Findings: Chronically occluded popliteal vein Contrast agent: Contrast volume (mL): 16. Radiation Dose Kerma area product (2 mGy ): 17. Attestation Signer name: Dr. Darian Mario I attest that I was present for the entire procedure. I reviewed the stored images and agree with th e report as written.
[2025-02-27 15:50] LABS: INR 1.08 (0.9-1.15); Partial Thromboplastin Time 37.9 SEC (24.5-34.5); Prothrombin Time 11.4 sec (9.3-11.8)
[2025-02-27 16:48] VITALS: BP 138/84; PULSE 63; RESP 18; TEMP 98.2; O2SAT 97
[2025-03-06] MEDS ORDERED: APIXABAN 5 MG TAB PO SCH (10:00)
== END 2025-02-27 18:10 | disposition home or self-care (01) | DRG 181 ==
LOC: ER 12:11 → OVERFLOW 15:25 → WEST WING 15:27
PROVIDERS: ADMIT Hospitalist; ATTEND Hospitalist
PROC: 04CM3ZZ Extirpation of Matter from Right Popliteal Artery, Percutaneous Approach (ICD-10-PCS; principal; 2025-02-26)
PROC: B51B1ZZ Fluoroscopy of Right Lower Extremity Veins using Low Osmolar Contrast (ICD-10-PCS; 2025-02-26)
DX: I82.431 Acute embolism and thrombosis of right popliteal vein (principal); I82.411 Acute embolism and thrombosis of right femoral vein; E66.01 Morbid (severe) obesity due to excess calories; Z68.41 Body mass index [BMI] 40.0-44.9, adult
CPT/HCPCS: 36415; 37187; 71275; 80048; 80053; 81241; 84154; 85025; 85301; 85610; 85730; 86803; 87340; 93971; 96374; 99152; 99291; C1894; G0378; J2250; Q9967